=== PATIENT | male | born 1990 | race Caucasian/White ===

== ENCOUNTER 2025-11-05 06:22 | Emergency (ER) | payer OTHER ==
[~2025-11-05] VITALS: Ht 175.3 cm; Wt 63.5 kg
== END 2025-11-05 08:05 | disposition home or self-care (01) ==
LOC: ER 06:22
DX: S01.511A Laceration without foreign body of lip, initial encounter (principal); Z59.89 Other problems related to housing and economic circumstances; V89.2XXA Person injured in unspecified motor-vehicle accident, traffic, initial encounter
CPT/HCPCS: 12011; 93005; 93010; 99284-25; A9270